=== PATIENT | male | born 1970 | race Caucasian/White ===

== ENCOUNTER 2022-04-09 22:10 | Emergency (ER) | payer OTHER ==
[2022-04-09 22:30] VITALS: BP 99/61; PULSE 107
[2022-04-09 23:27] LABS: ESTIMATED GFR 106 mL/min (>60)
== END 2022-04-10 00:30 | disposition home or self-care (01) ==
LOC: JP.ED 22:10
DX: I38 Endocarditis, valve unspecified (principal); I10 Essential (primary) hypertension; M19.90 Unspecified osteoarthritis, unspecified site; Z88.8 Allergy status to other drugs, medicaments and biological substances; Z79.899 Other long term (current) drug therapy
CPT/HCPCS: 36415; 80053; 85025; 87040; 99284

== ENCOUNTER 2022-04-12 00:44 | Emergency (ER) | payer OTHER ==
[2022-04-12] MEDS ORDERED: Acetaminophen 325 MG Tab PO ONE ×2 (01:11→09:18)
[2022-04-12 01:38] LABS: ESTIMATED GFR 106 mL/min (>60)
[2022-04-12] MEDS ORDERED: Sodium Chloride 0.9% 1,000 ML IV SCH (04:00)
[2022-04-12] MEDS ORDERED: DAPTOmycin 500 MG Vial IVPUSH ONE (04:40)
[2022-04-12] MEDS ORDERED: Ertapenem 1 GM in Sodium Chloride 0.9% 50 ML IV ONE (04:42)
[2022-04-12] MEDS ORDERED: Lactated Ringers 1,000 ML IV ONE ×2 (09:04→14:49)
[2022-04-12] MEDS ORDERED: HYDROmorphone 1 MG/ML Syringe IVPUSH ONE (09:18)
[2022-04-12] MEDS ORDERED: Lactated Ringers 1,000 ML IV SCH (10:20)
[2022-04-12] MEDS ORDERED: Norepinephrine Bit/D5W Premix 4 MG in Premix Bag 1 BAG IV SCH (15:23)
[2022-04-12 15:49] VITALS: BP 95/65; PULSE 104
== END 2022-04-12 16:17 ==
LOC: JP.ED 00:44
DX: A41.9 Sepsis, unspecified organism (principal); R65.21 Severe sepsis with septic shock; I33.0 Acute and subacute infective endocarditis; I10 Essential (primary) hypertension; Z79.899 Other long term (current) drug therapy; Z79.82 Long term (current) use of aspirin; Z88.8 Allergy status to other drugs, medicaments and biological substances; Z20.822 Contact with and (suspected) exposure to COVID-19
CPT/HCPCS: 36415; 71045; 74176; 80053; 80307; 82150; 83605; 83690; 84145; 85025; 86140; 87040; 87635; 96361; 96365; 96375; 99285; A9270; J0878; J1170; J1335; J7030; J7120; U0002

== ENCOUNTER 2022-06-20 05:57 | Day surgery (SDC) | payer OTHER ==
[2022-06-20] MEDS ORDERED: Dextrose 5%-Lactated Ringers 1,000 ML IV SCH (06:15)
[2022-06-20] MEDS ORDERED: Acetaminophen 500 MG Tab PO ONE (06:30)
[2022-06-20] MEDS ORDERED: Midazolam 1 MG/ML 2 ML SDV ONE (07:03)
[2022-06-20] MEDS ORDERED: fentaNYL 100 MCG/2 ML SDV ONE (07:03)
[2022-06-20] MEDS ORDERED: Propofol 200 MG/20 ML SDV ONE ×3 (07:04→08:11)
[2022-06-20] MEDS: Lidocaine 1% 50 ML MDV ONE ×2 (07:44→08:01)
[2022-06-20] MEDS: Bupivacaine 0.5%/EPINEPHrine 1:200,000 50 ML MDV ONE ×2 (07:45→08:01)
[2022-06-20] MEDS ORDERED: ceFAZolin 1 GM Vial IM ONE (08:00)
[2022-06-20] MEDS ORDERED: ceFAZolin 2 GM in Sodium Chloride 0.9% 50 ML IV ONE (08:00)
[2022-06-20] MEDS ORDERED: Ketorolac 30 MG/ML SDV ONE (08:21)
[2022-06-20] MEDS ORDERED: HYDROmorphone 2 MG Tab PO PRN (09:43)
[2022-06-20 10:03] VITALS: BP 107/65; PULSE 71
== END 2022-06-20 11:56 | disposition home or self-care (01) ==
LOC: JP.SDS 05:57
PROVIDERS: ATTEND Surgery
DX: K40.30 Unilateral inguinal hernia, with obstruction, without gangrene, not specified as recurrent (principal); G57.81 Other specified mononeuropathies of right lower limb; I10 Essential (primary) hypertension; F31.9 Bipolar disorder, unspecified; Z79.899 Other long term (current) drug therapy; Z88.8 Allergy status to other drugs, medicaments and biological substances
CPT/HCPCS: 49507; 64772; A9270; C1713; C1781; J0690; J1885; J2001; J2250; J2704; J3010; J3490; J7121

== ENCOUNTER 2022-07-31 23:11 | Emergency (ER) | payer MEDICAID, OTHER ==
[2022-07-31] MEDS ORDERED: LORazepam 2 MG/ML SDV IM ONE (23:32)
[2022-07-31] MEDS ORDERED: LORazepam 2 MG/ML SDV IVPUSH ONE (23:35)
[2022-07-31] MEDS ORDERED: Sodium Chloride 0.9% 10 ML Syringe FLUSH PRN (23:35)
[2022-07-31] MEDS ORDERED: Sodium Chloride 0.9% 1,000 ML IV SCH (23:45)
[2022-08-01] MEDS ORDERED: Ondansetron 4 MG/2 ML SDV IVPUSH ONE (00:13)
[2022-08-01 00:17] LABS: ESTIMATED GFR 110 mL/min (>60)
[2022-08-01] MEDS ORDERED: Metoprolol Tartrate 5 MG/5 ML SDV IVPUSH ONE (00:34)
[2022-08-01 01:40] VITALS: BP 132/91; PULSE 104
[2022-08-01] MEDS ORDERED: LORazepam 1 MG Tab PO ONE (01:40)
== END 2022-08-01 01:54 | disposition home or self-care (01) ==
LOC: JP.ED 23:11
DX: F10.930 Alcohol use, unspecified with withdrawal, uncomplicated (principal); R56.9 Unspecified convulsions; I10 Essential (primary) hypertension; Z79.899 Other long term (current) drug therapy; Z88.8 Allergy status to other drugs, medicaments and biological substances
CPT/HCPCS: 36415; 80053; 80305; 80307; 83605; 85025; 96374; 96375; 99283; 99285; A9270; J2060; J2405; J3490; J7030

== ENCOUNTER 2022-12-22 11:37 | Emergency (ER) | payer MEDICAID ==
[2022-12-22] MEDS ORDERED: LORazepam 2 MG/ML SDV IVPUSH PRN (12:37)
[2022-12-22] MEDS ORDERED: Sodium Chloride 0.9% 10 ML Syringe FLUSH PRN (12:37)
[2022-12-22] MEDS ORDERED: LORazepam 2 MG/ML SDV IVPUSH ONE ×2 (12:39→14:29)
[2022-12-22] MEDS ORDERED: Sodium Chloride 0.9% 1,000 ML IV SCH ×2 (12:45→16:30)
[2022-12-22 12:50] LABS: BASOPHILS ABSOLUTE AUTO 0.08 K/uL (0.00-0.10); BASOPHILS PERCENT AUTO 0.6 % (0.1-1.3); HEMATOCRIT 51.5 % (38.4-49.7); HEMOGLOBIN 16.9 g/dL (12.9-16.9); IMMATURE GRAN ABSOLUTE AUTO 0.09 K/uL (0.00-0.23); IMMATURE GRAN PERCENT AUTO 0.7 % (0.0-0.7); LYMPHOCYTES ABSOLUTE AUTO 2.28 K/uL (0.8-3.3); LYMPHOCYTES PERCENT AUTO 17.2 % (11.4-47.7); MEAN CORPUSCULAR HEMOGLOBIN 33.4 pg (31.6-35.5); MEAN CORPUSCULAR HGB CONC 32.8 g/dL (31.6-35.5); MEAN CORPUSCULAR VOLUME 101.8 fL (81.4-99.0); MONOCYTES ABSOLUTE AUTO 0.83 K/uL (0.20-0.90); MONOCYTES PERCENT AUTO 6.3 % (3.3-12.6); NEUTROPHILS ABSOLUTE AUTO 9.94 K/uL (1.0-7.6); NEUTROPHILS PERCENT AUTO 75.2 % (40.0-78.1); PLATELET COUNT,PLT 46 K/uL (130-375); RED BLOOD CELL COUNT 5.06 M/uL (4.14-5.76); WHITE BLOOD CELL COUNT,WBC 13.2 K/uL (3.2-11.0)
[2022-12-22 13:21] LABS: A/G RATIO 1.2 (1.2-2.2); ALANINE AMINOTRANSFERASE,ALT 70 U/L (12-78); ALBUMIN 4.4 g/dL (3.4-5.0); ALKALINE PHOSPHATASE 108 U/L (46-116); ASPARTATE AMNIOTRANSFERASE,AST 181 U/L (15-37); BILIRUBIN TOTAL 1.1 mg/dL (0.2-1.0); BLOOD UREA NITROGEN,BUN 8 mg/dL (7-18); CALCIUM 9.4 mg/dL (8.5-10.1); CHLORIDE,CL 105 mmol/L (100-108); EST CRCL DRUG DOSING (CG) 65.22 mL/min; ESTIMATED GFR 89 mL/min (>60); GLUCOSE RANDOM 216 mg/dL (74-106); POTASSIUM,K 3.4 mmol/L (3.6-5.2); PROTEIN TOTAL,TP 8.2 g/dL (6.4-8.2); SODIUM,NA 147 mmol/L (140-148)
[2022-12-22 13:23] LABS: ANION GAP 33.4 mmol/L (5.0-14.0); CARBON DIOXIDE,CO2 12 mmol/L (21-32)
[2022-12-22] MEDS ORDERED: MVI, Adult with Vitamin K 10 ML, Thiamine 200 MG, Folic Acid 1 MG, Magnesium Sulfate 2 ... IV ONE ×5 (14:01)
[2022-12-22 14:15] LABS: INR 1.1; PROTHROMBIN TIME 10.8 sec (9.2-10.6)
[2022-12-22] MEDS ORDERED: Acetaminophen 325 MG Tab PO ONE (14:51)
[2022-12-22 15:12] LABS: AMPHETAMINES SCREEN, URINE NEGATIVE (NEGATIVE); BARBITURATE SCREEN,URINE NEGATIVE (NEGATIVE); BENZODIAZEPINES SCREEN,URINE NEGATIVE (NEGATIVE); METHADONE SCREEN, URINE NEGATIVE (NEGATIVE); METHAMPHETAMINES SCREEN, URINE NEGATIVE (NEGATIVE); OXYCODONE SCREEN,URINE NEGATIVE (NEGATIVE); PROPOXYPHENE SCREEN,URINE NEGATIVE (NEGATIVE); THC SCREEN,URINE 50 NG/ML NEGATIVE (NEGATIVE)
[2022-12-22] MEDS ORDERED: LORazepam 2 MG/ML SDV IV SCH (15:15)
[2022-12-22] MEDS ORDERED: droPERidol 5 MG/2 ML SDV IVPUSH ONE (16:04)
[2022-12-22] MEDS ORDERED: Pantoprazole 40 MG Vial IVPUSH ONE (16:10)
[2022-12-22 16:38] VITALS: BP 135/90; PULSE 128
[2022-12-22] MEDS ORDERED: Octreotide 100 MCG/ML SDV IVPUSH ONE (16:46)
== END 2022-12-22 17:59 ==
LOC: JP.ED 11:37
DX: R56.9 Unspecified convulsions (principal); K29.21 Alcoholic gastritis with bleeding; F10.930 Alcohol use, unspecified with withdrawal, uncomplicated; Y90.2 Blood alcohol level of 40-59 mg/100 ml; I10 Essential (primary) hypertension; M19.90 Unspecified osteoarthritis, unspecified site; Z88.8 Allergy status to other drugs, medicaments and biological substances; Z79.899 Other long term (current) drug therapy
CPT/HCPCS: 36415; 70450; 80053; 80305; 80307; 83605; 85025; 85610; 96361; 96365; 96366; 96375; 96376; 99285; A9270; C9113; J1790; J2060; J2354; J3411; J3475; J3490; J7030; J7121

== ENCOUNTER 2023-09-25 08:27 | Inpatient (IN) | payer MEDICAID ==
[2023-09-25 09:50] LABS: BASOPHILS PERCENT AUTO 0.2 % (0.1-1.3); EOSINOPHILS PERCENT AUTO 0.1 % (0.0-5.4); HEMATOCRIT 39.5 % (38.4-49.7); HEMOGLOBIN 13.8 g/dL (12.9-16.9); IMMATURE GRAN ABSOLUTE AUTO 0.07 K/uL (0.00-0.23); IMMATURE GRAN PERCENT AUTO 0.6 % (0.0-0.7); LYMPHOCYTES ABSOLUTE AUTO 1.25 K/uL (0.8-3.3); LYMPHOCYTES PERCENT AUTO 10.9 % (11.4-47.7); MEAN CORPUSCULAR HEMOGLOBIN 31.6 pg (31.6-35.5); MEAN CORPUSCULAR HGB CONC 34.9 g/dL (31.6-35.5); MEAN CORPUSCULAR VOLUME 90.4 fL (81.4-99.0); MONOCYTES PERCENT AUTO 6.1 % (3.3-12.6); NEUTROPHILS ABSOLUTE AUTO 9.45 K/uL (1.0-7.6); NEUTROPHILS PERCENT AUTO 82.1 % (40.0-78.1); PLATELET COUNT,PLT 63 K/uL (130-375); RED BLOOD CELL COUNT 4.37 M/uL (4.14-5.76); WHITE BLOOD CELL COUNT,WBC 11.5 K/uL (3.2-11.0)
[2023-09-25 09:53] LABS: CORONAVIRUS COVID-19 NAA NEGATIVE (NEGATIVE); INFLUENZA A NAA NEGATIVE (NEGATIVE); INFLUENZA B NAA NEGATIVE (NEGATIVE); RESPIRATORY SYNCYTIAL VIR NAA NEGATIVE (NEGATIVE)
[2023-09-25 09:56] LABS: BASOPHILS ABSOLUTE AUTO 0.02 K/uL (0.00-0.10); EOSINOPHILS ABSOLUTE AUTO 0.01 K/uL (0.00-0.40)
[2023-09-25 10:02] LABS: A/G RATIO 1.1 (1.2-2.2); ALANINE AMINOTRANSFERASE,ALT 238 U/L (12-78); ALBUMIN 3.8 g/dL (3.4-5.0); ALKALINE PHOSPHATASE 67 U/L (46-116); ASPARTATE AMNIOTRANSFERASE,AST 293 U/L (15-37); BILIRUBIN TOTAL 3.6 mg/dL (0.2-1.0); BLOOD UREA NITROGEN,BUN 30 mg/dL (7-18); CALCIUM 9.2 mg/dL (8.5-10.1); CARBON DIOXIDE,CO2 28 mmol/L (21-32); CHLORIDE,CL 98 mmol/L (100-108); CREATININE 1.4 mg/dL (0.8-1.3); EST CRCL DRUG DOSING (CG) 46.04 mL/min; ESTIMATED GFR 59 mL/min (>60); GLUCOSE RANDOM 184 mg/dL (74-106); POTASSIUM,K 3.6 mmol/L (3.6-5.2); PROTEIN TOTAL,TP 7.2 g/dL (6.4-8.2); SODIUM,NA 140 mmol/L (140-148)
[2023-09-25 10:06] LABS: LACTIC ACID 3.8 mmol/L (0.4-2.0)
[2023-09-25] MEDS: Albuterol/Ipratropium 3.0-0.5 MG/3 ML Neb Soln NEB PRN (10:07)
[2023-09-25 10:09] LABS: ANION GAP 17.6 mmol/L (5.0-14.0)
[2023-09-25] MEDS ORDERED: SODIUM CHLORIDE 0.9% IV SCH (11:00)
[2023-09-25] MEDS ORDERED: CEFTRIAXONE IV SCH (11:00)
[2023-09-25] MEDS: Sodium Chloride 0.9% 10 ML Syringe FLUSH PRN (11:20)
[2023-09-25] MEDS: methylPREDNISolone Sod Succ 250 MG in Dextrose 5% in Water 100 ML IV ONE (11:20)
[2023-09-25] MEDS: cefTRIAXone 1 GM in Sodium Chloride 0.9% 50 ML IV SCH (11:20)
[2023-09-25] MEDS: Sodium Chloride 0.9% 500 ML IV ONE (11:23)
[2023-09-25] MEDS: cefTRIAXone 1 GM Vial ONE (11:23)
[2023-09-25 11:48] LABS: BASE EXCESS ARTERIAL 0.9 mm/L; BICARBONATE,ARTERIAL 23.4 mmol/L (22.0-26.0); CARBOXYHEMOGLOBIN 2.5 % (0.0-1.6); METHEMOGLOBIN 0.8 %; O2 SATURATION ARTERIAL 90.1 % (95.0-98.0); OXYHEMOGLOBIN 87.1 %; PCO2 ARTERIAL 31.9 mmHg (35.0-42.0); PO2 ARTERIAL 59.7 mmHg (75.0-100.0); TOTAL HEMOGLOBIN 13.1 g/dL (13.5-18.0)
[2023-09-25] MEDS ORDERED: Sodium Chloride 0.9% 1,000 ML IV SCH (12:30)
[2023-09-25] MEDS ORDERED: Sennosides/Docusate Sodium 50-8.6 MG Tab PO PRN (15:29)
[2023-09-25] MEDS ORDERED: Magnesium Hydroxide 400 MG/5 ML Susp 30 ML Cup PO PRN (15:29)
[2023-09-25] MEDS ORDERED: Ondansetron 4 MG/2 ML SDV IV PRN (15:29)
[2023-09-25] MEDS ORDERED: Albuterol 0.083% 2.5 MG/3 ML Neb Soln NEB PRN (15:29)
[2023-09-25] MEDS ORDERED: Ibuprofen 600 MG Tab PO PRN (15:29)
[2023-09-25] MEDS: Albuterol/Ipratropium 3.0-0.5 MG/3 ML Neb Soln NEB SCH (15:56)
[2023-09-25] MEDS: Potassium Chloride 20 MEQ Tab.ER PO ONE (15:56)
[2023-09-25] MEDS: Doxycycline 100 MG Cap PO SCH (15:56)
[2023-09-25] MEDS: Sodium Chloride 0.9% 1,000 ML IV SCH (15:57)
[2023-09-25] MEDS: Magnesium Sulfate/Water 2 GM in Premix Bag 1 BAG IV SCH (19:29)
[2023-09-25] MEDS: Benzonatate 100 MG Cap PO PRN (19:44)
[2023-09-25] MEDS: guaiFENesin/Dextromethorphan 100-10 MG/5 ML Soln 10 ML Cup PO PRN (19:44)
[2023-09-25 20:38] LABS: APPEARANCE,URINE SLIGHTLY CLOUDY (CLEAR)
[2023-09-25] MEDS: Lactobacillus Rhamnosus GG (Probiotic) Cap PO SCH (20:38)
[2023-09-25] MEDS: Thiamine 100 MG Tab PO SCH (20:39)
[2023-09-25] MEDS: Melatonin 3 MG Tab PO SCH (20:39)
[2023-09-25] MEDS: Metoprolol Tartrate 25 MG Tab PO SCH (20:40)
[2023-09-25] MEDS: Pantoprazole 40 MG Tab.CR PO SCH (20:40)
[2023-09-25] MEDS: Folic Acid 1 MG Tab PO SCH (20:40)
[2023-09-25 20:45] LABS: AMORPHOUS SEDIMENT,URINE FEW; BACTERIA,URINE MANY; EPITHELIAL CELLS,URINE NOT SEEN; MUCUS,URINE FEW; WBC,URINE 0-5 (0-5)
[2023-09-25 20:46] LABS: COLOR,URINE BROWN (YELLOW)
[2023-09-25] MEDS: Sodium Chloride 0.9% 1,000 ML IV ONE ×2 (20:48→21:56)
[2023-09-26 00:40] LABS: LACTIC ACID 3.2 mmol/L (0.4-2.0)
[2023-09-26 05:38] LABS: HEMATOCRIT 34.8 % (38.4-49.7); MEAN CORPUSCULAR HEMOGLOBIN 31.2 pg (31.6-35.5); MEAN CORPUSCULAR HGB CONC 34.5 g/dL (31.6-35.5); MEAN CORPUSCULAR VOLUME 90.4 fL (81.4-99.0); RED BLOOD CELL COUNT 3.85 M/uL (4.14-5.76); WHITE BLOOD CELL COUNT,WBC 8.1 K/uL (3.2-11.0)
[2023-09-26] MEDS: Ondansetron 4 MG Tab.DIS PO PRN (05:45)
[2023-09-26 06:05] LABS: A/G RATIO 1.1 (1.2-2.2); ALBUMIN 3.4 g/dL (3.4-5.0); ALKALINE PHOSPHATASE 57 U/L (46-116); BILIRUBIN TOTAL 1.5 mg/dL (0.2-1.0); BLOOD UREA NITROGEN,BUN 32 mg/dL (7-18); CARBON DIOXIDE,CO2 20 mmol/L (21-32); CHLORIDE,CL 105 mmol/L (100-108); CREATININE 0.9 mg/dL (0.8-1.3); EST CRCL DRUG DOSING (CG) 71.62 mL/min; ESTIMATED GFR 101 mL/min (>60); GLUCOSE RANDOM 194 mg/dL (74-106); MAGNESIUM 2.2 mg/dL (1.8-2.4); POTASSIUM,K 3.5 mmol/L (3.6-5.2); PROTEIN TOTAL,TP 6.6 g/dL (6.4-8.2); SODIUM,NA 140 mmol/L (140-148)
[2023-09-26 06:21] LABS: ALANINE AMINOTRANSFERASE,ALT 1075 U/L (12-78); ANION GAP 18.5 mmol/L (5.0-14.0); ASPARTATE AMNIOTRANSFERASE,AST 1894 U/L (15-37)
[2023-09-26] MEDS: Magnesium Sulfate/Water 2 GM in Premix Bag 1 BAG IV SCH (08:08)
[2023-09-26] MEDS: Aspirin 81 MG Tab.Chew PO SCH (08:09)
[2023-09-26] MEDS: Citalopram 20 MG Tab PO SCH (08:09)
[2023-09-26] MEDS: Potassium Chloride 20 MEQ Tab.ER PO ONE (08:33)
[2023-09-27 05:10] LABS: HEMATOCRIT 36.6 % (38.4-49.7); HEMOGLOBIN 12.4 g/dL (12.9-16.9); MEAN CORPUSCULAR HEMOGLOBIN 31.6 pg (31.6-35.5); MEAN CORPUSCULAR HGB CONC 33.9 g/dL (31.6-35.5); MEAN CORPUSCULAR VOLUME 93.4 fL (81.4-99.0); RED BLOOD CELL COUNT 3.92 M/uL (4.14-5.76); WHITE BLOOD CELL COUNT,WBC 12.2 K/uL (3.2-11.0)
[2023-09-27 05:30] LABS: A/G RATIO 1.1 (1.2-2.2); ALBUMIN 3.4 g/dL (3.4-5.0); ALKALINE PHOSPHATASE 67 U/L (46-116); BILIRUBIN TOTAL 1.2 mg/dL (0.2-1.0); BLOOD UREA NITROGEN,BUN 38 mg/dL (7-18); CALCIUM 8.8 mg/dL (8.5-10.1); CARBON DIOXIDE,CO2 22 mmol/L (21-32); CHLORIDE,CL 103 mmol/L (100-108); EST CRCL DRUG DOSING (CG) 64.46 mL/min; ESTIMATED GFR 89 mL/min (>60); GLUCOSE RANDOM 140 mg/dL (74-106); POTASSIUM,K 4.8 mmol/L (3.6-5.2); PROTEIN TOTAL,TP 6.5 g/dL (6.4-8.2); SODIUM,NA 136 mmol/L (140-148)
[2023-09-27 06:38] LABS: ALANINE AMINOTRANSFERASE,ALT 1417 U/L (12-78); ANION GAP 15.8 mmol/L (5.0-14.0); ASPARTATE AMNIOTRANSFERASE,AST 1860 U/L (15-37)
[2023-09-27 08:22] VITALS: PULSE 88
[2023-09-27] MEDS: Acetaminophen 325 MG Tab PO PRN (09:30)
[2023-09-27 11:25] VITALS: BP 113/88
== END 2023-09-27 13:00 | disposition home or self-care (01) | DRG 871 ==
LOC: JP.ED 08:27 → JP.MS 13:53
PROVIDERS: ADMIT Internal Medicine; ATTEND Internal Medicine
PROC: 4A033R1 Measurement of Arterial Saturation, Peripheral, Percutaneous Approach (ICD-10-PCS; principal; 2023-09-25)
PROC: 3E03329 Introduction of Other Anti-infective into Peripheral Vein, Percutaneous Approach (ICD-10-PCS; 2023-09-25)
DX: A41.9 Sepsis, unspecified organism (principal); J18.9 Pneumonia, unspecified organism; J96.01 Acute respiratory failure with hypoxia; J69.0 Pneumonitis due to inhalation of food and vomit; K76.0 Fatty (change of) liver, not elsewhere classified; R74.01 Elevation of levels of liver transaminase levels; M19.90 Unspecified osteoarthritis, unspecified site; K70.30 Alcoholic cirrhosis of liver without ascites; Z96.649 Presence of unspecified artificial hip joint; K82.8 Other specified diseases of gallbladder; F10.20 Alcohol dependence, uncomplicated; R65.20 Severe sepsis without septic shock; I10 Essential (primary) hypertension; F31.9 Bipolar disorder, unspecified; I95.9 Hypotension, unspecified; M54.9 Dorsalgia, unspecified; M41.9 Scoliosis, unspecified; G89.29 Other chronic pain; Z79.82 Long term (current) use of aspirin; Z95.2 Presence of prosthetic heart valve; Z98.890 Other specified postprocedural states; Z79.899 Other long term (current) drug therapy; Z88.8 Allergy status to other drugs, medicaments and biological substances
CPT/HCPCS: 0241U; 36415; 36600; 51798; 71046; 71046-26; 76700; 76700-26; 80053; 81001; 82803; 83605; 83735; 85025; 85027; 87040; 94640; 96365; 96366; 96367; 96368; 99223; 99232; 99238; 99285; 99285-25; A9270-GY; J0696; J2930; J3370; J3475; J3490; J7030; J7040; J7050; J7620; Q0162

== ENCOUNTER 2023-10-01 10:23 | Inpatient (IN) | payer MEDICAID ==
[2023-10-01] MEDS: Albuterol/Ipratropium 3.0-0.5 MG/3 ML Neb Soln NEB ONE (10:58)
[2023-10-01 11:55] LABS: BASOPHILS ABSOLUTE AUTO 0.05 K/uL (0.00-0.10); BASOPHILS PERCENT AUTO 0.5 % (0.1-1.3); EOSINOPHILS ABSOLUTE AUTO 0.03 K/uL (0.00-0.40); EOSINOPHILS PERCENT AUTO 0.3 % (0.0-5.4); HEMATOCRIT 38.2 % (38.4-49.7); HEMOGLOBIN 12.8 g/dL (12.9-16.9); IMMATURE GRAN ABSOLUTE AUTO 0.32 K/uL (0.00-0.23); IMMATURE GRAN PERCENT AUTO 2.9 % (0.0-0.7); LYMPHOCYTES ABSOLUTE AUTO 1.15 K/uL (0.8-3.3); LYMPHOCYTES PERCENT AUTO 10.6 % (11.4-47.7); MEAN CORPUSCULAR HEMOGLOBIN 31.3 pg (31.6-35.5); MEAN CORPUSCULAR HGB CONC 33.5 g/dL (31.6-35.5); MEAN CORPUSCULAR VOLUME 93.4 fL (81.4-99.0); MONOCYTES ABSOLUTE AUTO 0.84 K/uL (0.20-0.90); MONOCYTES PERCENT AUTO 7.7 % (3.3-12.6); NEUTROPHILS ABSOLUTE AUTO 8.49 K/uL (1.0-7.6); PLATELET COUNT,PLT 107 K/uL (130-375); RED BLOOD CELL COUNT 4.09 M/uL (4.14-5.76); WHITE BLOOD CELL COUNT,WBC 10.9 K/uL (3.2-11.0)
[2023-10-01] MEDS: Nitroglycerin 0.4 MG Tab.SL SL ONE (12:30)
[2023-10-01 12:32] LABS: A/G RATIO 1.1 (1.2-2.2); ALANINE AMINOTRANSFERASE,ALT 619 U/L (12-78); ALBUMIN 3.4 g/dL (3.4-5.0); ALKALINE PHOSPHATASE 92 U/L (46-116); ASPARTATE AMNIOTRANSFERASE,AST 199 U/L (15-37); BILIRUBIN TOTAL 1.4 mg/dL (0.2-1.0); BLOOD UREA NITROGEN,BUN 17 mg/dL (7-18); CALCIUM 8.9 mg/dL (8.5-10.1); CARBON DIOXIDE,CO2 23 mmol/L (21-32); CHLORIDE,CL 106 mmol/L (100-108); CREATININE 0.7 mg/dL (0.8-1.3); EST CRCL DRUG DOSING (CG) 92.08 mL/min; ESTIMATED GFR 109 mL/min (>60); GLUCOSE RANDOM 111 mg/dL (74-106); POTASSIUM,K 3.5 mmol/L (3.6-5.2); PRO B-TYPE NATRIUR PEPT,BNPPRO 10334 pg/mL (5-125); PROTEIN TOTAL,TP 6.5 g/dL (6.4-8.2); SODIUM,NA 143 mmol/L (140-148); TROPONIN I HIGH SENSITIVITY 32.6 pg/mL (<=60.3)
[2023-10-01] MEDS: Sodium Chloride 0.9% 10 ML Syringe FLUSH PRN (12:32)
[2023-10-01 12:33] LABS: ANION GAP 17.5 mmol/L (5.0-14.0)
[2023-10-01] MEDS: Furosemide 40 MG/4 ML VIAL IVPUSH ONE (13:03)
[2023-10-01 15:56] LABS: CORONAVIRUS COVID-19 NAA NEGATIVE (NEGATIVE); INFLUENZA A NAA NEGATIVE (NEGATIVE); INFLUENZA B NAA NEGATIVE (NEGATIVE); RESPIRATORY SYNCYTIAL VIR NAA NEGATIVE (NEGATIVE)
[2023-10-01] MEDS ORDERED: Albuterol 0.083% 2.5 MG/3 ML Neb Soln NEB PRN (16:28)
[2023-10-01] MEDS ORDERED: Acetaminophen 325 MG Tab PO PRN (16:28)
[2023-10-01] MEDS ORDERED: Sodium Chloride 0.9% 10 ML Syringe FLUSH PRN (16:28)
[2023-10-01] MEDS ORDERED: Ondansetron 4 MG/2 ML SDV IV PRN (16:28)
[2023-10-01] MEDS ORDERED: Polyethylene Glycol 3350 Powder 17 GM Packet PO PRN (16:28)
[2023-10-01] MEDS: Enoxaparin 40 MG/0.4 ML Syringe SUBCUT SCH (16:47)
[2023-10-01] MEDS: Doxycycline 100 MG Cap PO SCH (17:59)
[2023-10-01] MEDS: Furosemide 40 MG/4 ML VIAL IVPUSH SCH (18:00)
[2023-10-01] MEDS: Potassium Chloride 20 MEQ Tab.ER PO ONE (19:33)
[2023-10-01] MEDS: Metoprolol Tartrate 25 MG Tab PO SCH (21:05)
[2023-10-01] MEDS: Cefdinir 300 MG Cap PO SCH (21:06)
[2023-10-02 06:04] LABS: HEMATOCRIT 37.2 % (38.4-49.7); HEMOGLOBIN 12.4 g/dL (12.9-16.9); MEAN CORPUSCULAR HEMOGLOBIN 31.2 pg (31.6-35.5); MEAN CORPUSCULAR HGB CONC 33.3 g/dL (31.6-35.5); MEAN CORPUSCULAR VOLUME 93.7 fL (81.4-99.0); RED BLOOD CELL COUNT 3.97 M/uL (4.14-5.76); WHITE BLOOD CELL COUNT,WBC 7.8 K/uL (3.2-11.0)
[2023-10-02 06:30] LABS: ALANINE AMINOTRANSFERASE,ALT 460 U/L (12-78); ALKALINE PHOSPHATASE 78 U/L (46-116); ANION GAP 8.3 mmol/L (5.0-14.0); ASPARTATE AMNIOTRANSFERASE,AST 121 U/L (15-37); BILIRUBIN TOTAL 1.4 mg/dL (0.2-1.0); BLOOD UREA NITROGEN,BUN 19 mg/dL (7-18); CALCIUM 8.9 mg/dL (8.5-10.1); CARBON DIOXIDE,CO2 30 mmol/L (21-32); CHLORIDE,CL 107 mmol/L (100-108); CREATININE 0.7 mg/dL (0.8-1.3); EST CRCL DRUG DOSING (CG) 92.08 mL/min; ESTIMATED GFR 109 mL/min (>60); GLUCOSE RANDOM 110 mg/dL (74-106); MAGNESIUM 1.2 mg/dL (1.8-2.4); POTASSIUM,K 3.8 mmol/L (3.6-5.2); PROTEIN TOTAL,TP 6.1 g/dL (6.4-8.2); SODIUM,NA 145 mmol/L (140-148)
[2023-10-02] MEDS: Aspirin 81 MG Tab.Chew PO SCH (08:46)
[2023-10-02] MEDS: Magnesium Oxide 400 MG Tab PO SCH (08:47)
[2023-10-02] MEDS: Citalopram 20 MG Tab PO SCH (08:47)
[2023-10-02] MEDS: Magnesium Sulfate/Water 2 GM in Premix Bag 1 BAG IV SCH (08:48)
[2023-10-02] MEDS ORDERED: guaiFENesin/Dextromethorphan 100-10 MG/5 ML Soln 10 ML Cup PO PRN (19:08)
[2023-10-02] MEDS: Codeine/guaiFENesin 10-100 MG/5 ML Syrup 5 ML Cup PO PRN (20:56)
[2023-10-03 06:01] LABS: ALANINE AMINOTRANSFERASE,ALT 343 U/L (12-78); ALKALINE PHOSPHATASE 76 U/L (46-116); ASPARTATE AMNIOTRANSFERASE,AST 83 U/L (15-37); BLOOD UREA NITROGEN,BUN 18 mg/dL (7-18); CALCIUM 9.1 mg/dL (8.5-10.1); CARBON DIOXIDE,CO2 31 mmol/L (21-32); CHLORIDE,CL 105 mmol/L (100-108); CREATININE 0.7 mg/dL (0.8-1.3); EST CRCL DRUG DOSING (CG) 92.08 mL/min; ESTIMATED GFR 109 mL/min (>60); GLUCOSE RANDOM 103 mg/dL (74-106); MAGNESIUM 1.8 mg/dL (1.8-2.4); POTASSIUM,K 3.7 mmol/L (3.6-5.2); PROTEIN TOTAL,TP 6.1 g/dL (6.4-8.2); SODIUM,NA 143 mmol/L (140-148)
[2023-10-04 05:47] LABS: ALANINE AMINOTRANSFERASE,ALT 252 U/L (12-78); ALBUMIN 2.9 g/dL (3.4-5.0); ALKALINE PHOSPHATASE 74 U/L (46-116); ANION GAP 9.7 mmol/L (5.0-14.0); ASPARTATE AMNIOTRANSFERASE,AST 59 U/L (15-37); BILIRUBIN TOTAL 0.6 mg/dL (0.2-1.0); BLOOD UREA NITROGEN,BUN 20 mg/dL (7-18); CALCIUM 8.5 mg/dL (8.5-10.1); CARBON DIOXIDE,CO2 32 mmol/L (21-32); CHLORIDE,CL 101 mmol/L (100-108); CREATININE 0.9 mg/dL (0.8-1.3); EST CRCL DRUG DOSING (CG) 71.62 mL/min; ESTIMATED GFR 101 mL/min (>60); GLUCOSE RANDOM 132 mg/dL (74-106); MAGNESIUM 1.6 mg/dL (1.8-2.4); POTASSIUM,K 3.6 mmol/L (3.6-5.2); PROTEIN TOTAL,TP 5.8 g/dL (6.4-8.2); SODIUM,NA 143 mmol/L (140-148)
[2023-10-04] MEDS: Magnesium Sulfate/Water 2 GM in Premix Bag 1 BAG IV SCH (08:39)
[2023-10-04] MEDS: Potassium Chloride 20 MEQ Tab.ER PO ONE (08:43)
[2023-10-04 11:46] VITALS: BP 111/68; PULSE 60
== END 2023-10-04 13:48 | disposition home or self-care (01) | DRG 291 ==
LOC: JP.ED 10:23 → JP.MS 14:44
PROVIDERS: ADMIT Hospitalist; ATTEND Hospitalist
DX: I11.0 Hypertensive heart disease with heart failure (principal); I50.33 Acute on chronic diastolic (congestive) heart failure; J96.01 Acute respiratory failure with hypoxia; I25.10 Atherosclerotic heart disease of native coronary artery without angina pectoris; E83.42 Hypomagnesemia; I34.0 Nonrheumatic mitral (valve) insufficiency; Z66 Do not resuscitate; M19.90 Unspecified osteoarthritis, unspecified site; F31.9 Bipolar disorder, unspecified; G89.29 Other chronic pain; K76.0 Fatty (change of) liver, not elsewhere classified; M54.9 Dorsalgia, unspecified; Z96.649 Presence of unspecified artificial hip joint; Z95.2 Presence of prosthetic heart valve; Z88.8 Allergy status to other drugs, medicaments and biological substances; Z79.82 Long term (current) use of aspirin; Z95.1 Presence of aortocoronary bypass graft; Z98.890 Other specified postprocedural states; Z79.899 Other long term (current) drug therapy
CPT/HCPCS: 0241U; 36415; 71045; 71045-26; 80053; 83605; 83735; 83880; 84145; 84484; 85025; 85027; 93005; 93010; 93306; 94640; 96374; 99223; 99232; 99238; 99285; 99285-25; A9270-GY; J1650; J1940; J3475; J3490; J7620